=== PATIENT | male | born 1960 | race Caucasian/White ===

== ENCOUNTER 2019-03-05 16:59 | Observation (INO) ==
[2019-03-05] MEDS ORDERED: CLINDAMYCIN PHOSPHATE 600 MG in DEXTROSE 5 % IN WATER 100 ML IV ONE ×2 (17:21)
[2019-03-05] MEDS ORDERED: DIPHTH,PERTUSS(ACELL),TET VAC 0.5 ML VIAL IM ONE (17:22)
--- NOTE | 2019-03-05 17:29 | ERNOTE ---
Integumentary HPI - Narrative Date of Service: 03/05/19 - General Presenting Symptoms: other - foot injury/infection Time Seen by Provider: 03/05/19 17:14 Source: patient Exam Limitations: no limitations - Immun/Allergies/Home Medications Immunizations: IMMUNIZATION HX Immunizations Up to Date No History of Influenza Vaccine No Hx Pneumococcal Vaccination No Allergies/Adverse Reactions: Allergies Allergy/AdvReac Type Severity Reaction Status Date / Time latex AdvReac Itching Verified 03/05/19 17:21 Home Medications: HOME MEDICATIONS Glimepiride [Amaryl] 2 mg PO DAILY 03/05/19 [Last Taken Unknown] metFORMIN HCL [Metformin HCl] 1,000 mg PO BID 03/05/19 [Last Taken Unknown] - History of Present Illness Narrative: Patient presents to the ED for a foot injury "the day before yesterday". He had a 1920s thumb tack go through the bottom of his flip flop and because of his neuropathy he could not feel it. It cut through his right toe and it now has become infected. He also got a piece of wood in the bottom of his foot that was pulled out. He now feels this is infected. Has not seen anyone else for this. Location: Reports: other - right foot Quality: Reports: other - has neuropathy Exposure: Reports: other - injury Modifying Factors - (Improves): Reports: nothing Modifying Factors - (Worsens): Reports: nothing Associated Symptoms: Reports: denies symptoms. Denies: fever Prior Treatment: Denies: recently seen Review of Systems - Review of Systems Constitutional: Absent: fever Respiratory: Absent: shortness of breath Cardiology: Absent: chest pain Gastrointestinal/Abdominal: Absent: abdominal pain Musculoskeletal: Present: See HPI Skin: Present: See HPI Neurological: Absent: weakness Medical History (Updated 03/05/19 @ 17:12 by Indiana Gomez RN) Diabetes Sleep apnea Surgical History: Surgical History (Updated 03/05/19 @ 17:15 by Indiana Gomez RN) History of surgery on arm Social History: (Last Reviewed 03/05/19 @ 17:26 by Jesse Bowen MD) Tobacco: Smoking Status: Never smoker Alcohol: alcohol intake: never Substance Use: substance use type: does not use Physical Exam - Physical Exam General Appearance: Present: alert, no apparent distress Head Exam: Present: normal inspection, no evidence of injury Eye Exam: Normal inspection: bilateral, PERRL: bilateral Ears, Nose, Throat: Present: normal ENT inspection Neck: Present: normal inspection Respiratory: Present: no respiratory distress, normal breath sounds, no accessory muscle use, lungs clear Cardiovascular/Chest: Present: regular rate, rhythm, normal peripheral pulses Gastrointestinal/Abdominal: Present: normal bowel sounds, nontender, soft Back Exam: Present: normal range of motion Extremity Exam: Present: other - He has a puncture wound bottom or right mid foot. Thre is a laceration right toe but it is old and cannot be repaired there is redness about the toe and foot c/w cellulitis from the injury. No signs of necrosis, lymphangitis or nec fasc. There is swelling and redness of the toe that extendes onto the foor. There is warmth and mild redness all the way onto the distal medial calf. This does not localize to a specific joint. No crepitus. Neurological Exam: Present: alert, no motor/sensory deficits Skin Exam: Present: normal color, warm/dry, other - cellulitis as noted Progress - Results and Orders Patient's Lab Results:: I have reviewed the patient's lab results. - Vital Signs Patient's Vital Signs:: I have reviewed the patient's vital signs. Vital Signs: Vital Signs 03/05/19 17:00 Temperature 37.0 C Pulse Rate 93 Respiratory Rate 16 Blood Pressure 153/91 H O2 Sat by Pulse Oximetry 98 - X-Ray X-Ray #1 X-Ray: foot Interpretation: Interp. by me X-ray Comments: No real time radiology reads, no osteo or gas in the tissue noted. - Progress/Reassessment Chief Complaint: Cellulitis Progress Note-Subjective: 03/05/19 19:04 IV ABx given. His bloods sugar is high because he has been off of his medications for over a week. he did not get along with his doctor and quit going back to him so did not get a refill. Given his diabetes and the fact that this redness extends onto the foot and warmth up onto the low leg I feel IV ABx needed. Given in ED. I discussed options, he prefers hospital observation which given his uncontrolled sugars and extensiveness of the cellulitis I think is very reasonable. I discussed warning signs and reasons to return as well as the need for close f/u. Departure Clinical Impression: Hyperglycemia, Cellulitis, Diabetic foot infection - Departure Disposition: Still a patient Condition: Stable
[2019-03-05] MEDS ORDERED: LEVOFLOXACIN IN DEXTROSE 5 % 500 MG/100 ML BAG IV SCH (17:30)
[2019-03-05 17:37] LABS: Hematocrit 45.3 % (42.0-52.0); Hemoglobin 15.6 gm/dL (13.5-18.0); Mean Cell Volume 85.2 fl (78-100); Mean Corpuscular Hemoglobin 29.3 pg (27-31); Mean Corpuscular Hgb Conc 34.4 g/dl (32-36); Mean Platelet Volume 9.3 fl (8-11.3); Neutrophil # 8.6 K/mm3 (1.3-6.0); Platelet Count 233 K/mm3 (150-450); Red Blood Count 5.32 M/mm3 (4.7-6.0); Red Cell Distribution Width 12.9 % (11.5-14.0); White Blood Count 10.7 K/mm3 (4.0-10.5)
[2019-03-05 17:48] LABS: Albumin * 3.1 gm/dl (3.4-5.0); Anion Gap 14.7 mmol/L (6.8-13.8); Bilirubin, Total 0.5 mg/dL (0.0-1.1); CRP 10.1 mg/dL (0.0-0.9); Ca. Corrected For Albumin 9.2 mg/dL (8.4-10.2); Calcium * 8.8 mg/dL (7.9-10.9); Carbon Dioxide 25.8 mmol/L (24-32.6); Potassium 4.5 mmol/L (3.4-4.6); Total Protein 7.2 gm/dL (6.2-8.2)
[2019-03-05] MEDS ORDERED: INSUL NPH HU REC/INS RG HU REC 100 UNITS/ML VIAL SC SCH (21:30)
[2019-03-05] MEDS ORDERED: metFORMIN HCL 500 MG TABLET ONE (21:43)
[2019-03-05] MEDS: SACCHAROMYCES BOULARDII 250 MG CAPSULE PO SCH (21:57)
[2019-03-05] MEDS: HUM INSULIN NPH/REG INSULIN HM 100 UNIT/ML VIAL SC SCH (21:58)
[2019-03-05] MEDS: PIPERACILLIN SODIUM/TAZOBACTAM 3.375 GM in DEXTROSE 5 % IN WATER 100 ML IV SCH ×2 (22:29)
[2019-03-06 05:51] LABS: Hematocrit 44.2 % (42.0-52.0); Hemoglobin 15.1 gm/dL (13.5-18.0); Mean Cell Volume 85.7 fl (78-100); Mean Corpuscular Hemoglobin 29.3 pg (27-31); Mean Corpuscular Hgb Conc 34.2 g/dl (32-36); Mean Platelet Volume 10.2 fl (8-11.3); Neutrophil # 7.6 K/mm3 (1.3-6.0); Neutrophil % 75.4 % (42-75.0); Platelet Count 213 K/mm3 (150-450); Red Blood Count 5.16 M/mm3 (4.7-6.0); Red Cell Distribution Width 12.8 % (11.5-14.0); White Blood Count 10.1 K/mm3 (4.0-10.5)
[2019-03-06] MEDS: PIPERACILLIN SODIUM/TAZOBACTAM 3.375 GM in DEXTROSE 5 % IN WATER 100 ML IV SCH ×4 (05:55→13:32)
[2019-03-06 06:12] LABS: BUN/Creatinine Ratio 15.6 (9.0-21.6); Calcium * 8.4 mg/dL (7.9-10.9); Carbon Dioxide 24.2 mmol/L (24-32.6); Chol/HDL Risk Ratio 4.7 mg/dL (3.3-5.0); Estimated Creat Clear 113.4; Potassium 4.2 mmol/L (3.4-4.6)
[2019-03-06 06:34] LABS: Hemoglobin A1C 11.2 % (4.00-6.0)
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
[2019-03-06] MEDS: SACCHAROMYCES BOULARDII 250 MG CAPSULE PO SCH (08:40)
[2019-03-06] MEDS: HUM INSULIN NPH/REG INSULIN HM 100 UNIT/ML VIAL SC SCH ×3 (08:40→16:44)
[2019-03-06] MEDS ORDERED: GLIMEPIRIDE 2 MG TABLET PO SCH (09:00)
[2019-03-06] MEDS ORDERED: ACETAMINOPHEN 325 MG TABLET PO PRN (09:08)
--- NOTE | 2019-03-06 10:38 | DS ---
(1) Cellulitis Problem: Acute Qualifiers: Site of cellulitis: extremity Site of cellulitis of extremity: lower extremity Laterality: right Qualified Code(s): L03.115 - Cellulitis of right lower limb (2) Diabetic foot infection Problem: Acute (3) Diabetes mellitus Problem: Acute Qualifiers: Diabetes mellitus type: type 2 Diabetes mellitus residential insulin use: with residential use Diabetes mellitus complication status: with neurologic complications Diabetes mellitus complication detail: with polyneuropathy Qualified Code(s): E11.42 - Type 2 diabetes mellitus with diabetic polyneuropathy; Z79.4 - termite treater helper (current) use of insulin Date of Discharge:: 03/06/19 Description of Stay: Omar Barlow is a 59-year-old white male with past medical history of diabetes mellitus type 2, morbid obesity, who was admitted on 03/05/2019 because of an infected right foot. 1-1/2 days prior to admission the patient accidentally stepped on some on a thumb tack that was agnes and old. It pierced the sole of his flip-flop and it was poking him for about 20 minutes before he realized when he saw blood on his foot. He has diabetic neuropathy and does not feel that much with his foot. His huoezin-yu-clv looked at it and took out the thumbtack and he also noticed splintered wood with a piece of mulch attached near it. His [id number] also removed that. The following day he noticed swelling and redness of his foot and noticed some burning, and a sore feeling running up the medial aspect of his right leg going up to his knee. Because of the redness and swelling of his toe and some skin discoloration around his medial leg he went to our emergency room. His white blood cell count was 10.7, with a neutrophil count of 80%. His foot x-ray did not show any foreign body and no mention of any osteomyelitis. He was given clindamycin and Levaquin in the emergency room and admitted for observation. I started IV Zosyn and he jose have his 3rd dose around 2 p.m. today and will run for abput 4 hours. His swelling and redness of his right toe and foot as well as the soreness of his right leg has improved siginificantly. Will discharge him today after his 3rd dose and will put him on Augmentin 875 mg PO BID x 10 days starting tomorrow. He will follow up with is PCP in 1 week or earlier if s/sx get worst or recurs. He can use a cane to take off some pressure off his right foot with weight bearing and he to elevate his legs whenever he can. Procedures Performed: none Results and Findings: Pending Mircobiology Results 03/05/19 17:27 Foot - Right Wound Culture - Preliminary Ruling Out Pathogen Lab Pending Results 03/05/19 17:25: WBC 10.7 H, RBC 5.32, Hgb 15.6, Hct 45.3, MCV 85.2, MCH 29.3, MCHC 34.4, RDW 12.9, Plt Count 233, MPV 9.3, Immature Gran % (Auto) 2.00 H, Immature Gran # (Auto) 0.21 H, Neutrophils % 80.0 H, Lymphocytes % 7.7 L, Monocytes % 7.7, Eosinophils % 2.1, Basophils % 0.5, Nucleated RBC % 0.0, Neutrophils # 8.6 H, Lymphocytes # 0.82 L, Monocytes # 0.8, Eosinophils # 0.2, Absolute Basophils 0.1 03/05/19 17:25: Sodium 132, Plasma Sodium 137, Potassium 4.5, Chloride 96 L, Carbon Dioxide 25.8, Anion Gap 14.7 H, BUN 15, Creatinine 1.00, Est GFR (Non-Af Amer) 81, BUN/Creatinine Ratio 15.0, Random Glucose 398 H, Calcium 8.8, Calcium Adj for Albumin 9.2, Total Bilirubin 0.5, AST 31, ALT 28, Alkaline Phosphatase 62, C-Reactive Prot, Quant 10.1 H, Total Protein 7.2, Albumin 3.1 L 03/05/19 17:25: ESR 42 H 03/06/19 05:15: WBC 10.1, RBC 5.16, Hgb 15.1, Hct 44.2, MCV 85.7, MCH 29.3, MCHC 34.2, RDW 12.8, Plt Count 213, MPV 10.2, Immature Gran % (Auto) 2.90 H, Immature Gran # (Auto) 0.29 H, Neutrophils % 75.4 H, Lymphocytes % 9.0 L, Monocytes % 9.6 H, Eosinophils % 2.4, Basophils % 0.7, Nucleated RBC % 0.0, Neutrophils # 7.6 H, Lymphocytes # 0.91 L, Monocytes # 1.0, Eosinophils # 0.2, Absolute Basophils 0.1 03/06/19 05:15: Sodium 135, Plasma Sodium 138, Potassium 4.2, Chloride 101, Ca rbon Dioxide 24.2, Anion Gap 14.0 H, BUN 12, Creatinine 0.77, Est GFR (Non-Af Amer) 110 D, BUN/Creatinine Ratio 15.6, Random Glucose 281 H, Calcium 8.4, Triglycerides 124, Cholesterol 128, LDL Cholesterol 76, VLDL Cholesterol 25, HDL Cholesterol 27 L, Cholesterol/HDL Ratio 4.7 03/06/19 05:15: Mean Blood Glucose 287, Hemoglobin A1c 11.2 H Discharge Location: Home Disposition: Home self-care Condition: Stable Discharge Activity: Activity as tolerated - but may use a cane to take off some weight of his right foot with weight bearing Discharge Diet: Consistent carbs Additional Patient Instructions (free text): Follow up with his PCP in 1 week or earlier if s/sx recurs. He may follow up with x 1 if still looking for one. Prescriptions (Any new or edited meds): Glimepiride [Amaryl] 2 mg PO DAILY #30 tab Amox Tr/Potassium Clavulanate [Augmentin 875-125 Tablet] 875 mg PO Q12H #20 tab metFORMIN HCL [Metformin HCl] 1,000 mg PO BID #60 tab Insul NPH Hu Rec/Ins Rg Hu Rec [Novolin 70/30] 50 units SC TID #6 vial Acetaminophen [Tylenol] 650 mg PO Q4H PRN #30 tab PRN Reason: Mild Pain (Pain Scale 1-3) Complete Home Medications List: Complete Home Medication List: Acetaminophen [Tylenol] 650 mg PO Q4H PRN #30 tab 03/06/19 Amox Tr/Potassium Clavulanate [Augmentin 875-125 Tablet] 875 mg PO Q12H #20 tab 03/06/19 Glimepiride [Amaryl] 2 mg PO DAILY #30 tab 03/06/19 Insul NPH Hu Rec/Ins Rg Hu Rec [Novolin 70/30] 50 units SC TID #6 vial 03/06/19 metFORMIN HCL [Metformin HCl] 1,000 mg PO BID #60 tab 03/06/19
[2019-03-06 19:28] VITALS: BP 155/83
== END 2019-03-06 19:20 | disposition home or self-care (01) ==
LOC: ER 16:59 → MS 16:59
PROVIDERS: ADMIT Internal Medicine; ATTEND Internal Medicine
CPT/HCPCS: 36415; 73630; 80048; 80053; 80061; 83036; 85025; 85652; 86140; 87040; 87070; 87077; 87081; 87186; 90471; 90715; 94660; 96365; 96366; 96367; 96372; 99285; G0378